=== PATIENT | female | born 1980 | race Caucasian/White ===

== ENCOUNTER → 2021-09-25 | Outpatient (CLI) | payer BC ==
[~2021-09-25] MED LIST: COLACE50 MG PO; JOLESSA 30 MCG-1 TAB PO; MOTRIN 600600 MG/TAB PO; PERCOCET 325 MG1 TA2 PO; PRENATAL VITA1 UDTAB PO; ZANTAC 150MG T150 MG PO; ZYRTEC 10MG10 MG PO
== END ==
LOC: MC.RAD 09:32
DX: Z12.31 Encounter for screening mammogram for malignant neoplasm of breast (principal)

== ENCOUNTER 2022-06-26 21:19 | Emergency (ER) | payer BC ==
[~2022-06-26] VITALS: Ht 165.1 cm; Wt 81.8 kg
[2022-06-26 21:25] VITALS: TEMP 97.8
[2022-06-26 21:46] VITALS: BP 136/79; PULSE 64
== END 2022-06-26 21:48 | disposition home or self-care (01) ==
LOC: COL.ER 21:19
DX: S01.511A Laceration without foreign body of lip, initial encounter (principal); Z91.040 Latex allergy status; W01.198A Fall on same level from slipping, tripping and stumbling with subsequent striking against other object, initial encounter

== ENCOUNTER → 2023-10-21 | Outpatient (CLI) | payer BC | LOC: MC.RAD 08:37 | DX: Z12.31 Encounter for screening mammogram for malignant neoplasm of breast (principal) ==